=== PATIENT | female | born 1975 | race Caucasian/White ===

== ENCOUNTER 2018-04-30 10:10 | Emergency (ER) | payer SELFPAY ==
[~2018-04-30] VITALS: Ht 162.6 cm; Wt 92.4 kg
[2018-04-30 10:27] VITALS: BP 141/59
--- NOTE | 2018-04-30 10:48 | PHYS DOC ---
Past History Past Medical History: No Pertinent History Past Surgical History: Hysterectomy, Other Alcohol Use: None Drug Use: None Adult General Chief Complaint Chief Complaint: LACERATION/AVULSION HPI HPI 42-year-old female presents with right fifth digit laceration. The patient was cleaning a slicer machine yesterday and placed flat on her fifth digit about a 2 cm long. The flap was still attached at the distal end. Patient had a decent amount of bleeding but was able to make it stop with simple pressure. The patient had no further bleeding overnight. When she changed the dressing this morning, she had some repeat bleeding. While the patient was at her job, she had some further bleeding which concerned her employer. She does use her hands extensively all day. They recommended she come in and get it evaluated. Her last tetanus was 2014. Review of Systems Review of Systems Constitutional: Denies fever or chills [] Eyes: Denies change in visual acuity, redness, or eye pain [] HENT: Denies nasal congestion or sore throat [] Respiratory: Denies cough or shortness of breath [] Cardiovascular: No additional information not addressed in HPI [] GI: Denies abdominal pain, nausea, vomiting, bloody stools or diarrhea [] : Denies dysuria or hematuria [] Musculoskeletal: Denies back pain or joint pain [] Integument: Laceration of the right fifth finger[] Neurologic: Denies headache, focal weakness or sensory changes [] Endocrine: Denies polyuria or polydipsia [] All other systems were reviewed and found to be within normal limits, except as documented in this note. Allergies Allergies Allergies Coded Allergies Type Severity Reaction Last Updated Verified codeine Allergy Unknown 04/30/18 Yes Physical Exam Physical Exam Constitutional: Well developed, well nourished, no acute distress, non-toxic appearance. [] HENT: Normocephalic, atraumatic, bilateral external ears normal, oropharynx moist, no oral exudates, nose normal. [] Eyes: PERRLA, EOMI, conjunctiva normal, no discharge. [] Neck: Normal range of motion, no tenderness, supple, no stridor. [] Cardiovascular:Heart rate regular rhythm, no murmur [] Lungs & Thorax: Bilateral breath sounds clear to auscultation [] Abdomen: Bowel sounds normal, soft, no tenderness, no masses, no pulsatile masses. [] Skin: Patient has a curved laceration/avulsion 2 cm in length on the right fifth digit volar side. The flap appears to be adhered to the tissue below. There are no signs of infection. No current bleeding.[] Back: No tenderness, no CVA tenderness. [] Extremities: No tenderness, no cyanosis, no clubbing, ROM intact, no edema. [] Neurologic: Alert and oriented X 3, normal motor function, normal sensory function, no focal deficits noted. [] Psychologic: Affect normal, judgement normal, mood normal. [] Current Patient Data Vital Signs Vital Signs Date Time Temp Pulse Resp B/P (MAP) Pulse Ox O2 Delivery O2 Flow Rate FiO2 04/30/18 10:27 98.5 68 18 100 Room Air EKG EKG [] Radiology/Procedures Radiology/Procedures [] Course & Med Decision Making Course & Med Decision Making Pertinent Labs and Imaging studies reviewed. (See chart for details) Based on the history and physical exam, I do not believe stitches make sense. The flap is likely to partially or completely due to lack of blood flow. The flap is currently providing coverage for the tissue below it. Bleeding is controlled. There are no signs of infection or foreign body. I advised that the wound be recovered and padded with a bulky dressing for comfort. I will give the patient pain medication here as well as a short course of Pelican 5/325 for home. If signs and symptoms of infection develop, she will return to the emergency room or her PCP. [] Dragon Disclaimer Dragon Disclaimer This electronic medical record was generated, in whole or in part, using a voice recognition dictation system. Departure Departure: Referrals: PCP,NO (PCP) Scripts Hydrocodone Bit/Acetaminophen (NORCO 5-325 TABLET) 1 Each Tablet 1 TAB PO PRN Q6HRS PRN for PAIN, #10 TAB 0 Refills Prov: GILBERTO WATERS DO 04/30/18 GILBERTO WATERS DO Apr 30, 2018 10:48
[2018-04-30] MEDS: HYDROcodone/APAP 5/325MG 1 TAB TABLET PO ONE (11:00)
[2018-04-30] MEDS ORDERED: HYDR-971 PO (11:17)
== END 2018-04-30 11:24 | disposition home or self-care (01) ==
LOC: ER 10:10
DX: S61.216A Laceration without foreign body of right little finger without damage to nail, initial encounter (principal); Z88.5 Allergy status to narcotic agent; W27.4XXA Contact with kitchen utensil, initial encounter; Y93.89 Activity, other specified; Y92.89 Other specified places as the place of occurrence of the external cause; Y99.8 Other external cause status
CPT/HCPCS: 99283

== ENCOUNTER 2018-06-04 09:32 | Emergency (ER) | payer SELFPAY ==
[~2018-06-04] VITALS: Ht 152.4 cm; Wt 91.0 kg
[~2018-06-04 09:32] MED LIST: HYDR-971 PO
[2018-06-04] MEDS ORDERED: TRAM50TA PO (10:06)
--- NOTE | 2018-06-04 10:08 | RAD ---
KNEE LEFT 3V Clinical Indication: pain since yesterday, nki Comparison: None. Findings: Tricompartmental marginal osteophytes. There is no joint effusion. Patella in anatomic position. There is a posterior and lateral loose joint body measuring 1.9 cm. There may be more than one joint body. There is mild to moderate medial compartment narrowing. No acute fracture is identified. Mineralization is normal. No soft tissue swelling. IMPRESSION: 1. Loose joint bodies. 2. Moderate degenerative arthropathy for patient age. Electronically signed by: Jag Law MD (06/04/2018 10:05 AM) [id number]
--- NOTE | 2018-06-04 10:11 | ED.ADGEN ---
Past History Past Medical History: No Pertinent History Past Surgical History: Hysterectomy, Other Alcohol Use: None Drug Use: None Adult General Chief Complaint Chief Complaint Left knee pain HPI HPI Patient is a 42-year-old female presents with left knee pain after twisting left knee couple days ago. Patient is located above his lower lateral aspect of joint and posteriorly. It is described as throbbing is worse with weightbearing and range of motion. Patient's taken ibuprofen with limited relief. She is continued to walk and use left knee. Patient does not currently have a primary care physician. [] Review of Systems Review of Systems Review symptoms as per history of present illness. All other reviews 70. All other systems were reviewed and found to be within normal limits, except as documented in this note. Current Medications Current Medications Current Medications Medications (Trade) Dose Ordered Sig/Bess Start Time Stop Time Status Last Admin Dose Admin Acetaminophen/ Hydrocodone Bitart (Lortab 7.5/325) 1 tab 1X ONCE 06/04/18 10:30 06/04/18 10:31 DC 06/04/18 10:19 1 TAB Allergies Allergies Allergies Coded Allergies Type Severity Reaction Last Updated Verified codeine Allergy Unknown 04/30/18 Yes Physical Exam Physical Exam Constitutional: Well developed, well nourished, no acute distress, non-toxic appearance. []] Extremities: Knee, no joint swelling, left lateral knee tenderness, posterior knee pain, tenderness. Pain reproduces with range of motion. No bruising, deformity. Walks with antalgic gait. [] Neurologic: Alert and oriented X 3, left lower extremity, no motor weakness loss of sensation,pulses 2+ and symmetric.. [] Psychologic: Affect normal, judgement normal, mood normal. [] Current Patient Data Vital Signs Vital Signs Date Time Temp Pulse Resp B/P (MAP) Pulse Ox O2 Delivery O2 Flow Rate FiO2 06/04/18 10:30 98.3 84 16 125/59 (81) 98 Room Air EKG EKG [] Radiology/Procedures Radiology/Procedures [XR knee: No acute findings] Course & Med Decision Making Course & Med Decision Making Pertinent Labs and Imaging studies reviewed. (See chart for details) [Supportive care, PCP follow-up recommended. Courtesy work note provided.] Final Impression Final Impression [1 left knee sprain] Iain Disclaimer Rikyon Disclaimer This electronic medical record was generated, in whole or in part, using a voice recognition dictation system. GILBERTO MELENDEZ DO Jun 04, 2018 10:11
[2018-06-04 10:30] VITALS: BP 125/59
[2018-06-04] MEDS ORDERED: HYDROcodone/APAP 7.5/325MG 1 TAB TABLET PO ONE (10:30)
== END 2018-06-04 10:30 | disposition home or self-care (01) ==
LOC: ER 09:32
DX: S83.92XA Sprain of unspecified site of left knee, initial encounter (principal); Z88.5 Allergy status to narcotic agent; X50.1XXA Overexertion from prolonged static or awkward postures, initial encounter; Y93.89 Activity, other specified; Y92.89 Other specified places as the place of occurrence of the external cause; Y99.8 Other external cause status
CPT/HCPCS: 73562; 99284